=== PATIENT | male | born 1940 | race Caucasian/White ===

== ENCOUNTER → 2017-01-18 | Outpatient (CLI) | payer OTHER, MEDICARE ==
[~2017-01-18] MED LIST: AQUAPHOR OINTM396 GM TOP; ATIVAN0.5 MG PO; ATROVENT0.5 MG/2.5 INH; BROVANA15 MCG/2 M INH; CARTIA XT180 MG PO; CENTRAL-VITE1 EACH PO; FLOMAX0.4 MG PO; MORPHINE O10 MG/0.5 PO; MUCINEX1200 MG PO; PREDNISONE10 MG PO; PREDNISONE20 MG PO; PROAIR HFA8.5 GM INH; PROSCAR5 MG PO; SYMBICORT 160-4.6 GM INH; XOPENEX1.25 MG/3 INH
== END | disposition short-term general hospital (02) ==
LOC: CLPULM 14:11
DX: J44.9 Chronic obstructive pulmonary disease, unspecified (principal); R91.8 Other nonspecific abnormal finding of lung field; E46 Unspecified protein-calorie malnutrition; Z87.891 Personal history of nicotine dependence; Z79.52 Long term (current) use of systemic steroids